=== PATIENT | female | born 1960 ===

== ENCOUNTER 2018-09-22 02:19 | Inpatient (IN) ==
[2018-09-22] MEDS ORDERED: hydrALAZINE 20 MG/1 ML VIAL IV PRN ×2 (06:08→06:27)
[2018-09-22] MEDS ORDERED: MORPHINE 4 MG/1 ML VIAL IV PRN (06:30)
[2018-09-22] MEDS ORDERED: NICOTINE 21 MG/24 HR PATCH TRANSDERM PRN (06:30)
[2018-09-22] MEDS ORDERED: diphenhydrAMINE CAP 25 MG CAPSULE PO PRN (06:30)
[2018-09-22] MEDS ORDERED: ONDANSETRON 4 MG/2 ML VIAL IV PRN (06:30)
[2018-09-22 07:18] LABS: Basophils % 0.3 % (0.0-0.8); Eosinophils # 0.2 10*3/uL (0.0-0.87); Hemoglobin 8.4 GM/DL (12.0-16.0); Immature Granulocytes % 0.4 %; Immature Granulocytes Absolute 0.03 #; Lymphocytes # 1.9 10*3/uL (1.4-4.0); Lymphocytes % 25.8 % (21.3-54.2); Mean Corpuscular HGB Conc 32.3 GM/DL (32-36); Mean Corpuscular Hemoglobin 32 PG (27-34); Mean Corpuscular Volume 98.5 FL (87-102); Mean Platelet Volume 10.9 FL (9.6-12.0); Monocytes # 0.7 10*3/uL (0.11-0.8); Neutrophils # 4.4 10*3/uL (1.4-7.4); Neutrophils % 60.5 % (38.7-73.9); Platelet Count 161 T/CUMM (130-400); Red Blood Count 2.64 MC/CUMM (3.8-5.5); White Blood Count 7.3 T/CUMM (4-12)
[2018-09-22] MEDS ORDERED: AZTREONAM 1,000 MG in SYRINGE 1 EACH IV SCH (07:30)
[2018-09-22 07:46] LABS: Albumin 2.9 G/DL (3.4-5.0); Bilirubin,Total 0.5 MG/DL (0.2-1.0); Calcium 8.9 MG/DL (8.5-10.1); Osmolality,Calculated 288.5 MOS/KG (273-304); Potassium 4.1 MMOL/L (3.5-5.1); Risk Ratio 1.86; Thyroid Stimulating Hormone 1.75 uIU/ml (0.358-3.74); Total Protein 6.6 G/DL (6.4-8.3); VLDL CHOLESTEROL 18.6 MG/DL
[2018-09-22] MEDS ORDERED: VANCOMYCIN INJ 500 MG in SODIUM CHLORIDE 0.9% 100 ML IV PRN (07:49)
[2018-09-22] MEDS ORDERED: VANCOMYCIN INJ 1,000 MG in SODIUM CHLORIDE 0.9% 250 ML IV SCH (09:00)
[2018-09-22] MEDS: AZITHROMYCIN INJ 500 MG in SODIUM CHLORIDE 0.9% 250 ML IV SCH (09:05)
[2018-09-22] MEDS: SEVELAMER CARBONATE 800 MG TABLET PO SCH ×3 (09:07→16:14)
[2018-09-22] MEDS: PANTOPRAZOLE 40 MG TABLET PO SCH (09:09)
[2018-09-22] MEDS: LISINOPRIL 20 MG TABLET PO SCH (09:09)
[2018-09-22] MEDS: MULTIVITAMIN (BEROCCA) TABLET PO SCH (09:10)
[2018-09-22] MEDS: INSULIN LISPRO 100 UNIT/ML SUBCUT SCH ×3 (09:10→17:44)
[2018-09-22] MEDS: ASPIRIN EC 81 MG TABLET PO SCH (09:10)
[2018-09-22] MEDS: hydrALAZINE 25 MG TABLET PO SCH ×4 (09:10→20:33)
[2018-09-22] MEDS: FAMOTIDINE 20 MG TABLET PO SCH (09:11)
[2018-09-22] MEDS: TIMOLOL 0.5% OPH SOLN 5 ML BOTTLE BOTH EYES SCH (11:22)
[2018-09-22] MEDS ORDERED: VANCOMYCIN INJ 1,250 MG in SODIUM CHLORIDE 0.9% 250 ML IV ONE (12:00)
[2018-09-22] MEDS ORDERED: ALBUTEROL/IPRATROPIUM 3 ML NEB RESP TX ONE (15:54)
[2018-09-22] MEDS ORDERED: ALBUTEROL/IPRATROPIUM 3 ML NEB RESP TX PRN (17:05)
[2018-09-22] MEDS: ALBUTEROL/IPRATROPIUM 3 ML NEB RESP TX SCH (20:09)
[2018-09-22] MEDS: ATORVASTATIN 40 MG TABLET PO SCH (20:33)
[2018-09-22] MEDS: cloNIDine 0.1 MG TABLET PO SCH (20:33)
[2018-09-22] MEDS: INSULIN GLARGINE 100 UNIT/ML SUBCUT SCH (20:34)
[2018-09-22] MEDS: AZTREONAM 500 MG in SYRINGE 1 EACH IV SCH (20:34)
[2018-09-23] MEDS: ALBUTEROL/IPRATROPIUM 3 ML NEB RESP TX SCH ×4 (00:33→19:38)
[2018-09-23] MEDS: ACETAMINOPHEN 325 MG TABLET PO PRN (05:10)
[2018-09-23 06:30] LABS: Apearance,Urine Slightly Hazy (Clear); Bilirubin,Urine Negative (Negative); Blood, Urine Negative (Negative); Glucose,Urine (UA) 50 mg/dL (Negative); Ketones,Urine Negative (Negative); Mucus,Urine Occasional /LPF (Occasional); Nitrite,Urine Negative (Negative); Protein,Urine >=500 MG/DL; RBC,Urine 1 /HPF (0-4); Squamous Epithelial Cell,Urine Occasional /HPF (0-10); Urine Color Yellow (Yellow); Urine Specific Gravity 1.014 (1.001-1.035); Urine Urobilinogen < 2.0 EU/DL (0.2-1.0); WBC,Urine 1 /HPF (0-6)
[2018-09-23] MEDS: INSULIN LISPRO 100 UNIT/ML SUBCUT SCH ×3 (10:06→16:50)
[2018-09-23] MEDS: SEVELAMER CARBONATE 800 MG TABLET PO SCH ×3 (10:07→16:50)
[2018-09-23] MEDS ORDERED: SODIUM CHLORIDE 0.9% 100 ML IV ONE (11:16)
[2018-09-23] MEDS: ASPIRIN EC 81 MG TABLET PO SCH (11:20)
[2018-09-23] MEDS: LISINOPRIL 20 MG TABLET PO SCH (11:20)
[2018-09-23] MEDS: MULTIVITAMIN (BEROCCA) TABLET PO SCH (11:21)
[2018-09-23] MEDS: hydrALAZINE 25 MG TABLET PO SCH ×4 (11:21→21:58)
[2018-09-23] MEDS: PANTOPRAZOLE 40 MG TABLET PO SCH (11:21)
[2018-09-23] MEDS: FAMOTIDINE 20 MG TABLET PO SCH (11:21)
[2018-09-23] MEDS: TIMOLOL 0.5% OPH SOLN 5 ML BOTTLE BOTH EYES SCH (11:22)
[2018-09-23] MEDS: AZTREONAM 500 MG in SYRINGE 1 EACH IV SCH ×2 (11:25→21:59)
[2018-09-23] MEDS: AZITHROMYCIN INJ 500 MG in SODIUM CHLORIDE 0.9% 250 ML IV SCH (11:27)
[2018-09-23] MEDS ORDERED: VANCOMYCIN INJ 500 MG in SODIUM CHLORIDE 0.9% 100 ML IV ONE (17:00)
[2018-09-23] MEDS: cloNIDine 0.1 MG TABLET PO SCH (21:58)
[2018-09-23] MEDS: ATORVASTATIN 40 MG TABLET PO SCH (21:59)
[2018-09-23] MEDS: INSULIN GLARGINE 100 UNIT/ML SUBCUT SCH (22:00)
[2018-09-24] MEDS: ALBUTEROL/IPRATROPIUM 3 ML NEB RESP TX SCH ×4 (01:01→20:30)
[2018-09-24] MEDS: SEVELAMER CARBONATE 800 MG TABLET PO SCH ×3 (08:00→16:26)
[2018-09-24] MEDS: MULTIVITAMIN (BEROCCA) TABLET PO SCH (10:00)
[2018-09-24] MEDS: INSULIN LISPRO 100 UNIT/ML SUBCUT SCH ×3 (10:00→16:25)
[2018-09-24] MEDS: LISINOPRIL 20 MG TABLET PO SCH (10:00)
[2018-09-24] MEDS: ASPIRIN EC 81 MG TABLET PO SCH (10:01)
[2018-09-24] MEDS: hydrALAZINE 25 MG TABLET PO SCH ×4 (10:01→22:06)
[2018-09-24] MEDS: TIMOLOL 0.5% OPH SOLN 5 ML BOTTLE BOTH EYES SCH (10:01)
[2018-09-24] MEDS: PANTOPRAZOLE 40 MG TABLET PO SCH (10:01)
[2018-09-24] MEDS: FAMOTIDINE 20 MG TABLET PO SCH (10:01)
[2018-09-24] MEDS: AZTREONAM 500 MG in SYRINGE 1 EACH IV SCH ×2 (13:20→22:06)
[2018-09-24] MEDS: AZITHROMYCIN INJ 500 MG in SODIUM CHLORIDE 0.9% 250 ML IV SCH (13:21)
[2018-09-24] MEDS: cloNIDine 0.1 MG TABLET PO SCH ×2 (14:48→22:06)
[2018-09-24] MEDS: LACTULOSE 20 GM/30 ML UDCUP PO PRN ×2 (14:58→22:05)
[2018-09-24] MEDS: ACETAMINOPHEN 325 MG TABLET PO PRN (16:26)
[2018-09-24] MEDS: ATORVASTATIN 40 MG TABLET PO SCH (22:06)
[2018-09-24] MEDS: INSULIN GLARGINE 100 UNIT/ML SUBCUT SCH (22:07)
[2018-09-25] MEDS: ALBUTEROL/IPRATROPIUM 3 ML NEB RESP TX SCH ×3 (01:11→12:13)
[2018-09-25 05:37] LABS: Osmolality,Calculated 293.1 MOS/KG (273-304); Potassium 4.8 MMOL/L (3.5-5.1)
[2018-09-25] MEDS ORDERED: LEVOFLOXACIN 750 MG TABLET PO SCH (10:00)
[2018-09-25] MEDS: SEVELAMER CARBONATE 800 MG TABLET PO SCH ×2 (12:16)
[2018-09-25] MEDS: ASPIRIN EC 81 MG TABLET PO SCH (12:17)
[2018-09-25] MEDS: FAMOTIDINE 20 MG TABLET PO SCH (12:17)
[2018-09-25] MEDS: LISINOPRIL 20 MG TABLET PO SCH (12:17)
[2018-09-25] MEDS: MULTIVITAMIN (BEROCCA) TABLET PO SCH (12:17)
[2018-09-25] MEDS: hydrALAZINE 25 MG TABLET PO SCH ×2 (12:18)
[2018-09-25] MEDS: PANTOPRAZOLE 40 MG TABLET PO SCH (12:19)
[2018-09-25] MEDS: cloNIDine 0.1 MG TABLET PO SCH (12:19)
[2018-09-25 12:24] VITALS: BP 157/61
[2018-09-25] MEDS: TIMOLOL 0.5% OPH SOLN 5 ML BOTTLE BOTH EYES SCH (12:37)
[2018-09-25] MEDS: INSULIN LISPRO 100 UNIT/ML SUBCUT SCH (12:37)
== END 2018-09-25 14:30 | disposition home or self-care (01) | DRG 193 ==
LOC: N.TELEN 03:57 → SUATTDRO 03:57
PROVIDERS: ADMIT Internal Medicine; ATTEND Internal Medicine

== ENCOUNTER 2019-01-09 11:05 | Observation (INO) ==
[2019-01-09] MEDS ORDERED: ONDANSETRON ODT 4 MG TABLET PO STA (11:40)
[2019-01-09 12:02] LABS: Basophils % 0.3 % (0.0-0.8); Eosinophils # 0.5 10*3/uL (0.0-0.87); Eosinophils % 7.2 % (0.00-10.9); Hematocrit 28.6 VOL% (35.7-47.0); Hemoglobin 8.8 GM/DL (12.0-16.0); Immature Granulocytes % 0.6 %; Immature Granulocytes Absolute 0.04 #; Lymphocytes # 1.1 10*3/uL (1.4-4.0); Lymphocytes % 16.5 % (21.3-54.2); Mean Corpuscular HGB Conc 30.8 GM/DL (32-36); Mean Corpuscular Volume 100.4 FL (87-102); Mean Platelet Volume 10.2 FL (9.6-12.0); Monocytes % 11.3 % (1.7-12.7); Neutrophils % 64.1 % (38.7-73.9); Platelet Count 179 T/CUMM (130-400); Red Blood Count 2.85 MC/CUMM (3.8-5.5); Red Cell Distribution Width 14.8 % (9.3-17.3); White Blood Count 6.8 T/CUMM (4-12)
[2019-01-09 12:18] LABS: Calcium 9.5 MG/DL (8.5-10.1); Osmolality,Calculated 286.7 MOS/KG (273-304)
[2019-01-09] MEDS ORDERED: LACTULOSE 20 GM/30 ML UDCUP PO PRN (15:44)
[2019-01-09] MEDS ORDERED: ACETAMINOPHEN 500 MG TABLET PO STA (15:45)
[2019-01-09] MEDS ORDERED: GLUCAGON 1 MG VIAL IM PRN (15:48)
[2019-01-09] MEDS ORDERED: DEXTROSE 50% 25 GM/50 ML VIAL IV PRN (15:48)
[2019-01-09] MEDS: INSULIN LISPRO 100 UNIT/ML SUBCUT SCH ×2 (20:42→21:21)
[2019-01-09] MEDS: cloNIDine 0.1 MG TABLET PO SCH ×2 (20:42→21:21)
[2019-01-09] MEDS: amLODIPine 10 MG TABLET PO SCH (20:44)
[2019-01-09] MEDS: LISINOPRIL 20 MG TABLET PO SCH (21:21)
[2019-01-09] MEDS: ATORVASTATIN 40 MG TABLET PO SCH (21:21)
[2019-01-10 04:55] LABS: Basophils % 0.4 % (0.0-0.8); Eosinophils # 0.5 10*3/uL (0.0-0.87); Eosinophils % 6.9 % (0.00-10.9); Hematocrit 29.5 VOL% (35.7-47.0); Hemoglobin 9.1 GM/DL (12.0-16.0); Immature Granulocytes % 0.5 %; Immature Granulocytes Absolute 0.04 #; Lymphocytes # 1.4 10*3/uL (1.4-4.0); Mean Corpuscular HGB Conc 30.8 GM/DL (32-36); Mean Corpuscular Volume 101.4 FL (87-102); Mean Platelet Volume 11.1 FL (9.6-12.0); Monocytes % 9.3 % (1.7-12.7); Neutrophils % 64.9 % (38.7-73.9); Platelet Count 161 T/CUMM (130-400); Red Blood Count 2.91 MC/CUMM (3.8-5.5); Red Cell Distribution Width 14.6 % (9.3-17.3); White Blood Count 7.9 T/CUMM (4-12)
[2019-01-10 05:21] LABS: Albumin 3.4 G/DL (3.4-5.0); Bilirubin,Total 0.5 MG/DL (0.2-1.0); Calcium 9.3 MG/DL (8.5-10.1); Osmolality,Calculated 286.8 MOS/KG (273-304); Total Protein 6.6 G/DL (6.4-8.3)
[2019-01-10] MEDS: INSULIN LISPRO 100 UNIT/ML SUBCUT SCH ×4 (08:14→21:18)
[2019-01-10] MEDS: ASPIRIN EC 81 MG TABLET PO SCH (08:42)
[2019-01-10] MEDS: amLODIPine 10 MG TABLET PO SCH (08:42)
[2019-01-10] MEDS: cloNIDine 0.1 MG TABLET PO SCH ×3 (08:43→21:18)
[2019-01-10] MEDS: LISINOPRIL 20 MG TABLET PO SCH (08:43)
[2019-01-10] MEDS ORDERED: ALBUTEROL/IPRATROPIUM 3 ML NEB RESP TX ONE (16:11)
[2019-01-10 16:36] LABS: ABG Base Excess 6.5 MMOL/L (-2.5-2.5); ABG HCO3 30.3 MMOL/L (20-26); ABG Oxygen Saturation 97.5 % (95-100); ABG PCO2 49.9 MM HG (35-48); ABG PH 7.416 (7.35-7.45); ABG PO2 99.1 MM HG (80-95); ABG TCO2 29.1 MMOL/L (23-27)
[2019-01-10] MEDS: ATORVASTATIN 40 MG TABLET PO SCH (21:18)
[2019-01-10] MEDS: ACETAMINOPHEN 325 MG TABLET PO PRN (21:21)
[2019-01-11 08:06] LABS: Basophils % 0.1 % (0.0-0.8); Eosinophils # 0.6 10*3/uL (0.0-0.87); Eosinophils % 8.9 % (0.00-10.9); Hematocrit 28.6 VOL% (35.7-47.0); Hemoglobin 8.9 GM/DL (12.0-16.0); Immature Granulocytes % 0.7 %; Immature Granulocytes Absolute 0.05 #; Lymphocytes # 1.1 10*3/uL (1.4-4.0); Lymphocytes % 15.6 % (21.3-54.2); Mean Corpuscular HGB Conc 31.1 GM/DL (32-36); Mean Corpuscular Volume 99.7 FL (87-102); Mean Platelet Volume 10.4 FL (9.6-12.0); Monocytes % 11.2 % (1.7-12.7); Neutrophils % 63.5 % (38.7-73.9); Platelet Count 158 T/CUMM (130-400); Red Blood Count 2.87 MC/CUMM (3.8-5.5); Red Cell Distribution Width 14.5 % (9.3-17.3)
[2019-01-11 08:32] LABS: Albumin 3.3 G/DL (3.4-5.0); Bilirubin,Total 0.7 MG/DL (0.2-1.0); Calcium 9.2 MG/DL (8.5-10.1); Osmolality,Calculated 279.4 MOS/KG (273-304); Total Protein 6.8 G/DL (6.4-8.3)
[2019-01-11] MEDS: cloNIDine 0.1 MG TABLET PO SCH ×3 (09:33→21:33)
[2019-01-11] MEDS: ASPIRIN EC 81 MG TABLET PO SCH (09:33)
[2019-01-11] MEDS: amLODIPine 10 MG TABLET PO SCH (09:33)
[2019-01-11] MEDS: INSULIN LISPRO 100 UNIT/ML SUBCUT SCH ×4 (09:34→21:32)
[2019-01-11] MEDS: LISINOPRIL 20 MG TABLET PO SCH (09:36)
[2019-01-11] MEDS: ACETAMINOPHEN 325 MG TABLET PO PRN (16:39)
[2019-01-11] MEDS: ATORVASTATIN 40 MG TABLET PO SCH (21:33)
[2019-01-12 07:50] VITALS: BP 186/60
[2019-01-12] MEDS: INSULIN LISPRO 100 UNIT/ML SUBCUT SCH (08:00)
[2019-01-12] MEDS: amLODIPine 10 MG TABLET PO SCH (10:07)
[2019-01-12] MEDS: LISINOPRIL 20 MG TABLET PO SCH (10:08)
[2019-01-12] MEDS: ASPIRIN EC 81 MG TABLET PO SCH (10:08)
[2019-01-12] MEDS: cloNIDine 0.1 MG TABLET PO SCH (10:08)
== END 2019-01-12 15:05 | disposition home or self-care (01) ==
LOC: EDBD → EDUNIT# → N.ED 11:05 → N.EDINP 11:05 → SUATTDRO 15:03 → N.EDINP 16:02 → N.5E 19:13
PROVIDERS: ADMIT Hospitalist; ATTEND Internal Medicine

== ENCOUNTER 2022-02-06 11:31 | Inpatient (IN) ==
[2022-02-06] MEDS ORDERED: VANCOMYCIN INJ 1,000 MG in SODIUM CHLORIDE 0.9% 250 ML IV STA (14:44)
[2022-02-06 15:38] LABS: Basophils % 0.1 % (0.0-0.8); Eosinophils % 0.3 % (0.00-10.9); Hematocrit 40.9 VOL% (35.7-47.0); Hemoglobin 12.8 GM/DL (12.0-16.0); Immature Granulocytes % 0.6 %; Immature Granulocytes Absolute 0.06 #; Lymphocytes # 0.8 10*3/uL (1.4-4.0); Lymphocytes % 8.7 % (21.3-54.2); Mean Corpuscular HGB Conc 31.3 GM/DL (32-36); Mean Corpuscular Volume 94.7 FL (87-102); Mean Platelet Volume 9.9 FL (9.6-12.0); Monocytes # 0.8 10*3/uL (0.11-0.8); Monocytes % 8.3 % (1.7-12.7); Platelet Count 270 T/CUMM (130-400); Red Blood Count 4.32 MC/CUMM (3.8-5.5); Red Cell Distribution Width 13.1 % (9.3-17.3); White Blood Count 9.6 T/CUMM (4-12)
[2022-02-06 15:52] LABS: RBC,Urine <1 /HPF (0-4)
[2022-02-06 15:53] LABS: Bilirubin,Urine Negative (Negative); Blood, Urine Negative (Negative); Glucose,Urine (UA) Negative (Negative); Ketones,Urine Negative (Negative); Nitrite,Urine Negative (Negative); Protein,Urine Negative (Negative); Urine Appearance Clear (Clear); Urine Color Yellow (Yellow); Urine Urobilinogen 0.2 eU/dL (<2.0)
[2022-02-06] MEDS ORDERED: GLUCAGON 1 MG VIAL IM PRN (15:53)
[2022-02-06] MEDS ORDERED: DEXTROSE 10% 250 ML BAG IV PRN (16:03)
[2022-02-06] MEDS: INSULIN REGULAR 100 UNIT/ML SUBCUT SCH ×2 (16:44→21:08)
[2022-02-06 17:04] LABS: Calcium 9.6 MG/DL (8.5-10.1); Osmolality,Calculated 282.3 MOS/KG (273-304)
[2022-02-06] MEDS: GENTAMICIN INJ 80 MG/50 ML PREMIX IV SCH (20:54)
[2022-02-06] MEDS: TACROLIMUS 1 MG PO SCH (20:56)
[2022-02-06] MEDS: TIMOLOL 0.5% OPH SOLN 5 ML BOTTLE BOTH EYES SCH (20:56)
[2022-02-06] MEDS: MYCOPHENOLATE MOFETIL 250 MG CAPSULE PO SCH (20:57)
[2022-02-06] MEDS: INSULIN GLARGINE 100 UNIT/ML SUBCUT SCH (21:08)
[2022-02-06] MEDS: ACETAMINOPHEN 325 MG TABLET PO PRN (22:23)
[2022-02-07] MEDS: VANCOMYCIN INJ 1,000 MG in SODIUM CHLORIDE 0.9% 250 ML IV SCH ×2 (03:47→17:03)
[2022-02-07] MEDS: GENTAMICIN INJ 80 MG/50 ML PREMIX IV SCH (04:55)
[2022-02-07 06:20] LABS: Basophils % 0.3 % (0.0-0.8); Eosinophils # 0.1 10*3/uL (0.0-0.87); Eosinophils % 1.9 % (0.00-10.9); Hemoglobin 12.2 GM/DL (12.0-16.0); Immature Granulocytes % 0.5 %; Immature Granulocytes Absolute 0.04 #; Lymphocytes # 0.8 10*3/uL (1.4-4.0); Lymphocytes % 11.3 % (21.3-54.2); Mean Corpuscular HGB Conc 31.3 GM/DL (32-36); Mean Corpuscular Volume 94.9 FL (87-102); Mean Platelet Volume 10.1 FL (9.6-12.0); Monocytes # 0.7 10*3/uL (0.11-0.8); Monocytes % 8.8 % (1.7-12.7); Neutrophils % 77.2 % (38.7-73.9); Platelet Count 250 T/CUMM (130-400); Red Blood Count 4.11 MC/CUMM (3.8-5.5); Red Cell Distribution Width 13.2 % (9.3-17.3); White Blood Count 7.4 T/CUMM (4-12)
[2022-02-07 06:38] LABS: Osmolality,Calculated 284.5 MOS/KG (273-304); Potassium 4.1 MMOL/L (3.5-5.1)
[2022-02-07] MEDS: INSULIN REGULAR 100 UNIT/ML SUBCUT SCH ×4 (08:35→21:12)
[2022-02-07] MEDS: INSULIN GLARGINE 100 UNIT/ML SUBCUT SCH ×2 (08:35→20:24)
[2022-02-07] MEDS: lisinopriL 10 MG TABLET PO SCH (08:36)
[2022-02-07] MEDS: MYCOPHENOLATE MOFETIL 250 MG CAPSULE PO SCH ×2 (08:36→20:21)
[2022-02-07] MEDS: predniSONE 5 MG TABLET PO SCH (08:36)
[2022-02-07] MEDS: amLODIPine 5 MG TABLET PO SCH (08:36)
[2022-02-07] MEDS: FAMOTIDINE 20 MG TABLET PO SCH (08:36)
[2022-02-07] MEDS: ATORVASTATIN 40 MG TABLET PO SCH (08:36)
[2022-02-07] MEDS: TIMOLOL 0.5% OPH SOLN 5 ML BOTTLE BOTH EYES SCH ×2 (08:37→20:21)
[2022-02-07] MEDS: TACROLIMUS 1 MG PO SCH ×2 (08:37→20:21)
[2022-02-07] MEDS: AZTREONAM 1,000 MG in SODIUM CHLORIDE 0.9% 100 ML IV SCH ×2 (15:00→21:13)
[2022-02-07] MEDS: ACETAMINOPHEN 325 MG TABLET PO PRN (15:08)
[2022-02-08] MEDS: VANCOMYCIN INJ 1,000 MG in SODIUM CHLORIDE 0.9% 250 ML IV SCH (03:32)
[2022-02-08] MEDS: AZTREONAM 1,000 MG in SODIUM CHLORIDE 0.9% 100 ML IV SCH (05:01)
[2022-02-08 05:09] LABS: Basophils % 0.3 % (0.0-0.8); Eosinophils # 0.1 10*3/uL (0.0-0.87); Hematocrit 30.6 VOL% (35.7-47.0); Hemoglobin 9.5 GM/DL (12.0-16.0); Immature Granulocytes % 0.8 %; Immature Granulocytes Absolute 0.05 #; Lymphocytes # 1.4 10*3/uL (1.4-4.0); Lymphocytes % 22.9 % (21.3-54.2); Mean Corpuscular Volume 95.6 FL (87-102); Mean Platelet Volume 10.4 FL (9.6-12.0); Monocytes # 0.7 10*3/uL (0.11-0.8); Monocytes % 11.7 % (1.7-12.7); Neutrophils % 63.3 % (38.7-73.9); Platelet Count 214 T/CUMM (130-400); White Blood Count 6.1 T/CUMM (4-12)
[2022-02-08 05:29] LABS: Calcium 7.1 MG/DL (8.5-10.1); Osmolality,Calculated 287.7 MOS/KG (273-304); Potassium 3.3 MMOL/L (3.5-5.1)
[2022-02-08 05:35] LABS: Eosinophils 2 % (0-10); Lymphocytes 17 % (20-55); Platelet Estimate Adequate; Total Cells Counted 100
[2022-02-08] MEDS ORDERED: POTASSIUM CHLORIDE 20 MEQ TABLET PO ONE (08:15)
[2022-02-08] MEDS ORDERED: MAGNESIUM SULF RIDER 2 GM/50 ML PREMIX IV ONE (08:15)
[2022-02-08] MEDS: INSULIN GLARGINE 100 UNIT/ML SUBCUT SCH (09:04)
[2022-02-08] MEDS: INSULIN REGULAR 100 UNIT/ML SUBCUT SCH ×2 (09:05→13:41)
[2022-02-08] MEDS: MYCOPHENOLATE MOFETIL 250 MG CAPSULE PO SCH (09:05)
[2022-02-08] MEDS: TACROLIMUS 1 MG PO SCH (09:06)
[2022-02-08] MEDS: predniSONE 5 MG TABLET PO SCH (09:06)
[2022-02-08] MEDS: ATORVASTATIN 40 MG TABLET PO SCH (09:06)
[2022-02-08] MEDS: FAMOTIDINE 20 MG TABLET PO SCH (09:06)
[2022-02-08] MEDS: lisinopriL 10 MG TABLET PO SCH (09:06)
[2022-02-08] MEDS: amLODIPine 5 MG TABLET PO SCH (09:06)
[2022-02-08] MEDS: TIMOLOL 0.5% OPH SOLN 5 ML BOTTLE BOTH EYES SCH (09:07)
[2022-02-08] MEDS ORDERED: CLINDAMYCIN 300 MG CAPSULE PO SCH (12:00)
[2022-02-08 12:40] VITALS: BP 136/62
== END 2022-02-08 13:30 | disposition home or self-care (01) | DRG 603 ==
LOC: EDBD → EDUNIT# → N.ED 11:31 → N.EDINP 14:47 → N.3E 15:52
PROVIDERS: ADMIT Surgery; ATTEND Surgery